=== PATIENT | female | born 1940 | race Caucasian/White ===

== ENCOUNTER → 2016-03-27 | Outpatient (CLI) | payer MEDICARE, OTHER ==
--- NOTE | 2016-03-28 07:04 | USB ---
Reason for exam: additional evaluation requested from abnormal screening. History: Patient is postmenopausal. Physical Findings: Nurse Summary: prominent nodularity left breast posterior nipple (nurse ts). US Breast Workup Limited LT Left breast ultrasound demonstrates a 0.5 x 0.4 x 0.5cm oval, mixed lesion at 8 o'clock. These results were verbally communicated with the patient and result sheet given to the patient on 03/27/16. ASSESSMENT: Suspicious, BI-RAD 4 RECOMMENDATION: Ultrasound core biopsy of the left breast. (+/- FNA) Called with mammographic findings and has scheduled an appointment for the patient for 03/29/16 at 3:[address] Long. PRELIMINARY REPORT CALLED AND FAXED TO DR. LONG ON 03/28/16 AT 300/TMP.
== END | disposition home or self-care (01) ==
LOC: RADMAMWWP 13:39
PROVIDERS: ATTEND Internal Medicine
DX: R92.8 Other abnormal and inconclusive findings on diagnostic imaging of breast (principal)

== ENCOUNTER → 2016-04-16 | Day surgery (SDC) | payer MEDICARE, OTHER ==
--- NOTE | 2016-04-16 16:27 | USB ---
EXAMINATION TYPE: US discontinued breast bx LT DATE OF EXAM: 04/16/2016 12:36 PM CLINICAL HISTORY: 75-year-old female with a left breast lesion referred for biopsy. TECHNIQUE: Ultrasound guided core biopsy of the left breast. COMPARISON: Ultrasound 03/27/2016 and mammogram 03/15/2016 FINDINGS: The patient's blood pressure was low in the 70s systolic, confirmed after repeat measurements. The oksana myers reports blood pressures normally running in the 120's systolic. Dr. Long's office was contact ed and confirmed that previous blood pressure measurements were in the 120's systolic. Oxygen saturat ion was also noted to be in the low 90s. Decision was made to defer biopsy at this time until patient's blood pressure returned to a more norm al value. Patient was sent to Dr. Long's office to be seen IMPRESSION: BI-RADS 4-suspicious. RECOMMENDATION: 1. Ultrasound-guided left breast core needle biopsy.
== END ==
LOC: RADUSWWP 11:25
PROVIDERS: ATTEND Internal Medicine
DX: R92.8 Other abnormal and inconclusive findings on diagnostic imaging of breast (principal); Z53.09 Procedure and treatment not carried out because of other contraindication; Z88.6 Allergy status to analgesic agent; I95.9 Hypotension, unspecified

== ENCOUNTER → 2016-05-21 | Day surgery (SDC) | payer MEDICARE, OTHER ==
--- NOTE | 2016-05-21 14:04 | USB ---
Discontinued ultrasound core biopsy left breast HISTORY: Ultrasound core biopsy for left 8:00 lesion Given elevated blood pressure ranging between 175/88 to 170/84 biopsy was discontinued and can be res cheduled when the patient's blood pressure stabilizes.
== END ==
LOC: RADUSWWP 11:45
PROVIDERS: ATTEND Internal Medicine
DX: R92.8 Other abnormal and inconclusive findings on diagnostic imaging of breast (principal); I10 Essential (primary) hypertension

== ENCOUNTER → 2016-06-20 | Day surgery (SDC) | payer MEDICARE, OTHER ==
--- NOTE | 2016-06-20 15:47 | USB ---
EXAMINATION TYPE: US biopsy breast VAD LT, MG diagnostic mammo LT wo CAD DATE OF EXAM: 06/20/2016 1:16 PM CLINICAL HISTORY: 75-year-old female R92.8 ABN MAMMO. Further for ultrasound- guided biopsy. TECHNIQUE: Ultrasound guided core biopsy of left breast. COMPARISON: 03/27/2016 and 03/15/2016 FINDINGS: The procedure of ultrasound guided core biopsy was explained to the patient. Benefits, alternatives, and risks were discussed. An informed consent was then obtained. The patient's blood pressure was checked prior to the procedure and was 138 systolic. The patient was placed in supine positioning for imaging and for the procedure. The overlying skin was prepped and draped in usual sterile fashion. Lidocaine buffered with bicarbonate was used as anesthetic into the skin and subcutaneous tissue up to area of concern in the left breast breast, 8:00. Under ultrasound guidance, a 13-gauge vacuum-assisted mammotome Elite biopsy gun device was used to obtain 5 core samples. Following this, a coil clip was left at the site of biopsy. The patient tolerated the procedure well without any immediate complication. The patient was kept in the radiology department for short stay after the procedure and then discharged home in stable condition. Postprocedure mammogram shows the clip in position at the site of mammographic abnormality. IMPRESSION: Successful, uncomplicated ultrasound guided core biopsy of area of concern in the 8:00 left breast corresponding to the mammographic abnormality. Full pathology results to follow. Pathology Results: Benign BREAST, LEFT, CORE BIOPSY: FIBROADENOMA. FIBROCYSTIC CHANGES INCLUDING FIBROSIS AND CYSTS. Recommendation Follow up mammogram of the left breast in 6 months. JAMARI
== END ==
LOC: RADUSWWP 10:33
PROVIDERS: ATTEND Internal Medicine
DX: D24.2 Benign neoplasm of left breast (principal); N60.32 Fibrosclerosis of left breast; R92.8 Other abnormal and inconclusive findings on diagnostic imaging of breast; N60.02 Solitary cyst of left breast; Z88.8 Allergy status to other drugs, medicaments and biological substances
CPT/HCPCS: 88305; 19083; G0206; A4648

== ENCOUNTER → 2020-04-18 | Outpatient (CLI) | payer MEDICARE, OTHER | END | disposition home or self-care (01) | LOC: LABWHC1 14:02 | PROVIDERS: ATTEND Psychiatry & Neurology Neurology | DX: Z01.812 Encounter for preprocedural laboratory examination (principal); Z20.822 Contact with and (suspected) exposure to COVID-19 | CPT/HCPCS: 93005; 36415; U0003; C9803; U0005 ==